=== PATIENT | male | born 1940 | race American Indian/Alaskan Native ===

== ENCOUNTER 2018-08-05 05:54 | Day surgery (SDC) | payer MEDICARE ==
[2018-08-05] MEDS ORDERED: HALFPRIN EC PO ONE (06:30)
[2018-08-05 07:01] LABS: Basophils % (Auto) 0.8 % (0.0-1.8); Eosinophils # (Auto) 0.3 K/mm3 (0.0-0.4); Eosinophils % (Auto) 6.5 % (0.0-4.3); Hematocrit 39.2 % (35.5-45.6); Hemoglobin 13.3 gm/dl (11.8-15.2); Lymphocytes # (Auto) 1.1 K/mm3 (1.2-5.4); Lymphocytes % (Auto) 24.1 % (13.4-35.0); Mean Corpuscular HGB Conc 34 % (32-34); Mean Corpuscular Volume 88 fl (84-94); Monocytes # (Auto) 0.7 K/mm3 (0.0-0.8); Monocytes % (Auto) 15.2 % (0.0-7.3); Platelet Count 183 K/mm3 (140-440); Red Blood Count 4.44 M/mm3 (3.65-5.03); Red Cell Distribution Width 13.6 % (13.2-15.2)
[2018-08-05 07:11] LABS: INR 0.97 (0.87-1.13)
[2018-08-05 07:12] LABS: Calcium 8.7 mg/dL (8.4-10.2)
[2018-08-05] MEDS: NACL 0.9% 500 ML 500 ML IV SCH ×2 (07:13→09:15)
[2018-08-05] MEDS ORDERED: PLAVIX PO ONE (08:00)
[2018-08-05] MEDS ORDERED: HEPARIN/NS 5000 UNIT/500ML(CATH LAB) 1,000 ML IR ONE (08:13)
[2018-08-05] MEDS ORDERED: SUBLIMAZE ONE (08:14)
[2018-08-05] MEDS ORDERED: HEPARIN 10,000 UNITS/10 ML ONE ×2 (08:14→09:25)
[2018-08-05] MEDS ORDERED: XYLOCAINE 2% INFILTRATI ONE (08:15)
[2018-08-05] MEDS ORDERED: NITROGLYCERIN SYRINGE 0 ML ONE (08:15)
[2018-08-05] MEDS ORDERED: CALAN ONE (08:15)
[2018-08-05] MEDS: VERSED ONE ×2 (09:11→09:12)
[2018-08-05] MEDS ORDERED: BABY ASPIRIN PO SCH (10:00)
[2018-08-05] MEDS ORDERED: NACL 0.9% 1000 ML 1,000 ML IV SCH (11:00)
--- NOTE | 2018-08-05 13:23 | Short Stay Summary ---
Short Stay Documentation Date of service: 08/05/18 - History H&P: obtained from office - Allergies and Medications Current Medications: Allergies No Known Allergies Allergy (Unverified 06/16/13 09:58) Home Medications Medication Instructions Recorded Confirmed Last Taken Type Aspirin EC [Aspirin Enteric Coated 81 mg PO QDAY #30 tablet 06/19/13 08/05/18 1 Day Ago Rx TAB] ~08/04/18 81mg Clopidogrel [Plavix] 75 mg PO QDAY #30 tablet 06/19/13 08/05/18 1 Day Ago Rx ~08/04/18 Ergocalciferol [Vitamin D2] 1 cap PO QWEEK #30 capsule 06/19/13 08/05/18 1 Day Ago Rx ~08/04/18 Indomethacin 50 mg PO Q8H #90 capsule 06/19/13 08/05/18 1 Day Ago Rx ~08/04/18 Potassium Chloride [K-Dur] 8 meq PO QDAY #30 tablet 06/19/13 08/05/18 1 Day Ago Rx ~08/04/18 amLODIPine [Norvasc] 10 mg PO DAILY #30 tablet 06/19/13 08/05/18 08/04/18 Rx Allopurinol [Zyloprim] 1 tab PO DAILY 08/05/18 08/05/18 1 Day Ago History ~08/04/18 Atorvastatin (Nf) [Lipitor] 20 mg PO QHS 08/05/18 08/05/18 1 Day Ago History ~08/04/18 20 mg Carvedilol [Coreg] 12.5 mg PO BID 08/05/18 08/05/18 08/04/18 History 6.25mg Chlorthalidone [Thalitone] 25 tab PO DAILY 08/05/18 08/05/18 1 Day Ago History ~08/04/18 Gemfibrozil [Lopid] 600 mg PO BID 08/05/18 08/05/18 1 Day Ago History ~08/04/18 Glimepiride [Amaryl] 1 tab PO BID 08/05/18 08/05/18 1 Day Ago History ~08/04/18 Losartan/Hydrochlorothiazide 1 each PO DAILY 08/05/18 08/05/18 1 Day Ago History [Hyzaar 100-25 TAB] ~08/04/18 Active Medications Aspirin (Baby Aspirin) 81 mg PO QDAY CLAUDINE Sodium Chloride (Nacl 0.9% 500 Ml) 500 mls @ 50 mls/hr IV DIRECT CLAUDINE Stop: 08/05/18 16:59 Last Admin: 08/05/18 09:15 Dose: 50 mls/hr Documented by: Sodium Chloride (Nacl 0.9% 1000 Ml) 1,000 mls @ 100 mls/hr IV DIRECT CLAUDINE Stop: 08/05/18 16:59 Last Admin: 08/05/18 11:00 Dose: 100 mls/hr Documented by: - Brief post op/procedure progress note Date of procedure: 08/05/18 Pre-op diagnosis: Abnormal stress test Post-op diagnosis: other (CAD) Procedure: C - see dictated cath report Anesthesia: local Estimated blood loss: none Condition: stable - Disposition Condition at discharge: Good Disposition: [id number] TO HOME OR SELFCARE - Discharge Diagnoses (1) Diabetes mellitus Status: Chronic (2) History of PTCA Status: Acute (3) Dyslipidemia Status: Chronic (4) CAD (coronary artery disease) Status: Chronic (5) HTN (hypertension) Status: Chronic Short Stay Discharge Plan Diet: low fat, low cholesterol, diabetic Wound: open to air, keep clean and dry, per your surgeon's advice Additional Instructions: Bring CD with you to Surgery appt. Follow up with: ESPINOZA GUERRA MD [Staff Physician] - 7 Days AMBROSIO GONSALEZ MD [Primary Care Provider] - 7 Days Forms: CardCath PCI D/C Instructions
--- NOTE | 2018-08-05 13:33 | Cardiac Catherization Report ---
CARDIAC CATHETERIZATION INDICATIONS FOR PROCEDURE: The patient is a 77-year-old -[place] gentleman. The patient is being followed by Dr. Misbah Call in the office. He had history of coronary intervention of the LAD done in 2013, history of nephrectomy and diabetic for the last years, was noted to have abnormal stress nuclear imaging with evidence of ischemia in the LAD and circumflex areas along with complaints of shortness of breath with exertion. No chest pain. The patient is on appropriate medication. His creatinine on the day of catheterization was 2.0. DESCRIPTION OF PROCEDURE: The patient was brought to the catheterization laboratory in a fasting condition. The patient was evaluated for moderate sedation and he was found to be appropriate for IV sedation. The patient received IV Versed and fentanyl. Subsequently, the right wrist area and forearm were thoroughly cleansed with Betadine solution. Sterile drapes were applied. Local anesthesia was given in the right wrist area and right radial artery puncture was made using 21-gauge arterial puncture needle. Subsequently, 5-[place]an slender sheath was used. Left ventriculogram was not performed; however, left ventricular pressures are 151/20. Subsequently, angiograms of the left coronary artery were obtained using a 5-[place]an multipurpose catheter and angiograms of the right coronary artery were obtained with 5-[place]enezuelan multipurpose catheter. It is to be noted that a separate ostia for the LAD and circumflex. We engaged the circumflex artery. We used a 5-[place] JL4 diagnostic catheter. After obtaining the angiograms of the coronaries and obtain the pressures in the left ventricle, catheter and sheath were removed and good hemostasis was achieved with pressure bandage. No untoward complications were noted. The patient was transferred to the room in stable condition. The patient was sedated with IV Versed and fentanyl starting at 9:11 a.m. and sedation monitoring ended at 9:37 a.m. The patient was monitored throughout the procedure with oximetry, pulse oximetry and EKG monitoring and hemodynamic monitoring. The patient at the end is communicating normally, moving all the extremities and breathing normally. Following findings were noted. HEMODYNAMICS: 1. Opening aortic pressure is 157/73, left ventricular pressure 151/20. No gradient across the aortic valve. 2. Right coronary artery dominant vessel shows diffuse moderate disease involving the proximal and mid third long segment, at least 50% in severity. This is dominant vessel. 3. Left coronary artery, as mentioned above, LAD and circumflex are arising separately. LAD shows approximately 70% ostial lesion and also high mid LAD shows 80% concentric lesion in addition to mid to distal LAD showing 80% eccentric lesion proximal to the previous stent. Previous stent is patent. Distal LAD is without significant disease. Proximal diagonal branch showed 60% smooth long lesion. 4. Circumflex artery is arising separately shows ostial 75% lesion. There is ventricularization and damping of the pressure on engaging the circumflex artery. This is a large vessel with no significant distal disease. 5. Collaterals none. 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 The patient has underlying chronic kidney disease, also diabetic. He had previously inserted stent in the mid left anterior descending, which is patent. Considering the above clinical picture and angiographic picture, it was felt the patient may benefit from revascularization surgically. If the surgical risk is high, interventional revascularization can be considered. Discussed with the patient and his , explained the findings. We will make arrangements with cardiothoracic surgeon at [facility]. Discussed with Dr. Call, his primary physician general internal medicine, who suggested to send him to Dr. Molina. Procedure was uncomplicated. Considering his creatinine is high, we will hydrate him for next 6 hours with intravenous normal saline. His creatinine will be reevaluated in 48 hours. The patient tolerated the procedure well. No untoward complications were noted. JOB# [id number] ALDA/STONE
[2018-08-05 15:56] VITALS: BP 151/69
== END 2018-08-05 16:00 | disposition home or self-care (01) ==
LOC: CATHLABREC 05:54
PROVIDERS: ATTEND Internal Medicine
DX: I25.10 Atherosclerotic heart disease of native coronary artery without angina pectoris (principal); I10 Essential (primary) hypertension; E11.9 Type 2 diabetes mellitus without complications; E78.5 Hyperlipidemia, unspecified; E78.00 Pure hypercholesterolemia, unspecified; Z86.718 Personal history of other venous thrombosis and embolism; Z90.5 Acquired absence of kidney; Z79.899 Other long term (current) drug therapy; Z79.82 Long term (current) use of aspirin; Z98.61 Coronary angioplasty status; Z98.49 Cataract extraction status, unspecified eye; Z98.890 Other specified postprocedural states
CPT/HCPCS: 36415; 80048; 82962; 85025; 85610; 85730; 93005; 93010; 93458; 96360; 96361; 99156; 99157; C1894; J1644; J2250; J3010; J7030; J7040; Q9967